=== PATIENT | female | born 1990 ===

== ENCOUNTER 2016-12-30 18:24 | Emergency (ER) | payer SELFPAY ==
[2016-12-30 18:50] VITALS: TEMP 98.3
[2016-12-30 19:38] LABS: URINE APPEARANCE CLEAR (CLEAR); URINE BILIRUBIN NEGATIVE (NEGATIVE); URINE BLOOD LARGE (NEGATIVE); URINE COLOR YELLOW (YELLOW); URINE GLUCOSE (UA) NEGATIVE (NEGATIVE); URINE KETONE NEGATIVE (NEGATIVE); URINE LEUKOCYTE ESTERASE NEGATIVE Leu/uL (NEGATIVE); URINE PROTEIN NEGATIVE mg/dL (<30 mg/dL); URINE UROBILINOGEN 0.2 E.U./dL (<1 E.U./dL)
[2016-12-30 20:02] LABS: URINE BACTERIA MANY (NEG)
--- NOTE | 2016-12-30 20:16 | ED PDOC ---
Arrival/HPI - General Chief Complaint: Female Genitourinary Time Seen by Provider: 12/30/16 18:58 Historian: Patient - History of Present Illness Narrative History of Present Illness (Text): 12/30/16 20:12 Patient complains of several day history of pressure-like suprapubic abdominal pain associated with bilateral flank pain, hematuria and dysuria. Otherwise: (- ) vomiting, (-) diarrhea, (-) fever, (-) melena, (-) hematochezia, (-) vaginal bleeding, (-) vaginal discharge. Has no history of prior abdominal surgery. Past Medical History - Provider Review Nursing Documentation Reviewed: Yes - Infectious Disease Hx of Infectious Diseases: None - Pulmonary Hx Asthma: Yes - Genitourinary/Gynecological Hx Urinary Tract Infection: Yes - Psychiatric Hx Substance Use: No - Anesthesia Hx Anesthesia: No Hx Anesthesia Reactions: No Hx Malignant Hyperthermia: No Family/Social History - Physician Review Nursing Documentation Reviewed: Yes Family/Social History: No Known Family HX Smoking Status: Never Smoked Hx Alcohol Use: No Hx Substance Use: No Allergies/Home Meds Allergies/Adverse Reactions: Allergies No Known Allergies Allergy (Verified 12/30/16 18:50) Review of Systems - Review of Systems Constitutional: Normal. absent: Fatigue, Weight Change, Fevers Respiratory: Normal. absent: SOB, Cough, Sputum Cardiovascular: Normal. absent: Chest Pain, Palpitations, Edema Gastrointestinal: Normal, Abdominal Pain. absent: Stool Changes, Vomiting, Appetite Changes Genitourinary Female: Normal, Dysuria. absent: Frequency, Hematuria Musculoskeletal: Normal. absent: Arthralgias, Back Pain, Neck Pain Skin: Normal. absent: Rash, Pruritis, Skin Lesions Physical Exam - Physical Exam Narrative Physical Exam (Text): 12/30/16 20:14 GENERAL APPEARANCE: Patient is awake, alert, oriented x 3, in no acute distress. SKIN: Warm, dry; (-) cyanosis. EYES: (-) conjunctival pallor, (-) scleral icterus. ENMT: Mucous membranes moist. NECK: (-) tenderness, (-) stiffness, (-) lymphadenopathy. CHEST AND RESPIRATORY: (-) rales, (-) rhonchi, (-) wheezes; breath sounds equal bilaterally. HEART AND CARDIOVASCULAR: (-) irregularity; (-) murmur, (-) gallop. ABDOMEN AND GI: (-) distention. Bowel sounds active; (+) mild suprapubic tenderness, (-) flank tenderness, (-) guarding, (-) rebound, (-) palpable masses , (-) CVA tenderness. EXTREMITIES: (-) deformity, (-) edema, (+) distal pulses. NEURO AND PSYCH: Mental status as above; (-) focal findings. Vital Signs Temp Pulse Resp BP Pulse Ox 12/30/16 18:46 98.3 F 78 20 112/75 98 Medical Decision Making ED Course and Treatment: 12/30/16 20:15 26 yo F planes of suprapubic pain, flank pain, hematuria and dysuria. UA and urine culture sent. Urine hCG negative, UA shows evidence of infection, urine culture pending at this time. Patient medicated with Macrobid and Pyridium by mouth. Based on history, exam and diagnostic results plan will be for outpatient follow -up. Prescription provided. Patient states she fully agrees with and understands discharge instructions. States that she agrees with the plan and disposition. Verbalized and repeated discharge instructions and plan. I have given the patient opportunity to ask any additional questions. Follow up with primary care physician or the clinic in 1-2 days without fail. Advised to take medication as prescribed. Return to the emergency room at any time for any new or worsening symptoms. - Lab Interpretations Lab Results: Lab Results 12/30/16 19:07: Urine Color Yellow, Urine Appearance Clear, Urine pH 7.0, Ur Specific [place] 1.020, Urine Protein Negative, Urine Glucose (UA) Negative, Urine Ketones Negative, Urine Blood Large H, Urine Nitrate Positive H, Urine Bilirubin Negative, Urine Urobilinogen 0.2, Ur Leukocyte Esterase Negative, Urine RBC 1 - 3, Urine WBC 10 - 15, Ur Epithelial Cells 10 - 12, Urine Bacteria Many - Medication Orders Current Medication Orders: Nitrofurantoin Macrocrystals (Macrobid) 100 mg PO ONCE ONE Stop: 12/30/16 20:13 Phenazopyridine HCl (Pyridium) 200 mg PO ONCE ONE Stop: 12/30/16 20:13 - PA / CYBER SECURITY ARCHITECT / Resident Statement / has reviewed & agrees with the documentation as recorded. Disposition/Present on Arrival - Present on Arrival Any Indicators Present on Arrival: No History of DVT/PE: No History of Uncontrolled Diabetes: No Urinary Catheter: No History of Decub. Ulcer: No History Surgical Site Infection Following: None - Disposition Have Diagnosis and Disposition been Completed?: Yes Diagnosis: UTI (urinary tract infection) Disposition: HOME/ ROUTINE Disposition Time: 20:16 Patient Plan: Discharge Patient Problems: Current Active Problems Problem Status Onset UTI (urinary tract infection) Acute Condition: GOOD Discharge Instructions (ExitCare): Urinary Tract Infection in Children (ED) Print Language: DANISH Additional Instructions: Thank you for letting us take care of you today. You were treated for UTI. The emergency medical care you received today was directed at your acute symptoms. If you were prescribed any medication, please fill it and take as directed. It may take several days for your symptoms to resolve. Return to the Emergency Department if your symptoms worsen, do not improve, or if you have any other problems. Please contact your doctor in 2 days for re-evaluation and follow up. Bring any paperwork you were given at discharge with you along with any medications you are taking to your follow up visit. Our treatment cannot replace ongoing medical care by a primary care provider (PCP) outside of the emergency department. Thank you for allowing the [facility] team to be part of your care today. Prescriptions: Nitrofurantoin Macrocrystals [Macrobid] 100 mg PO BID #20 cap Phenazopyridine [Pyridium] 200 mg PO BID #6 tab Referrals: [facility] at [facility] [place] [Outside] - Follow up with primary Forms: SCHOOL NOTE, WORK NOTE
[2016-12-30 20:43] VITALS: BP 115/80; PULSE 70; RESP 16; O2SAT 99
== END 2016-12-30 20:42 | disposition home or self-care (01) ==
LOC: ED 18:24 → MERGE 18:24 → ED 20:42
DX: N39.0 Urinary tract infection, site not specified (principal)

== ENCOUNTER 2017-01-20 16:06 | Emergency (ER) | payer BC, MEDICAID, OTHER ==
[2017-01-20 16:23] VITALS: BMI 20.9
[2017-01-20 16:25] VITALS: BP 102/57; PULSE 83; RESP 16; TEMP 97.7
--- NOTE | 2017-01-20 16:54 | ED PDOC ---
Arrival/HPI - General Chief Complaint: Lower Extremity Problem/Injury Time Seen by Provider: 01/20/17 16:27 Historian: Patient - History of Present Illness Narrative History of Present Illness (Text): 01/20/17 16:51 26yr old female presents today with 3 day history of left foot, ankle and left calf pain. pt denies numbness, weakness, tingling. pt denies fever/chills. denies trauma or injury. Pt states pain started in left foot and spread into ankle and calf. pt states she took motrin for pain without relief. no other complaints. Time/Duration: Other (3 days) Symptom Onset: Gradual Symptom Course: Worsening Quality: Aching, Throbbing Severity Level: 8 Past Medical History - Provider Review Nursing Documentation Reviewed: Yes - Travel History Have you recently traveled outside [place] w/in the past 3 mons?: No - Infectious Disease Hx of Infectious Diseases: None - Tetanus Immunization Tetanus Immunization: Unknown - Cardiac Hx Hypertension: No - Pulmonary Hx Asthma: Yes - Neurological Hx Seizures: No - HEENT Hx HEENT Disorder: No - Renal Hx Renal Disorder: No - Endocrine/Metabolic Hx Endocrine Disorders: No - Hematological/Oncological Hx Cancer: No - Integumentary Hx Dermatological Disorder: No - Musculoskeletal/Rheumatological Hx Musculoskeletal Disorders: No - Gastrointestinal Hx Gastrointestinal Disorders: No - Genitourinary/Gynecological Hx Urinary Tract Infection: Yes - Psychiatric Hx Depression: Yes Hx Substance Use: No - Anesthesia Hx Anesthesia: No Hx Anesthesia Reactions: No Hx Malignant Hyperthermia: No - Suicidal Assessment Feels Threatened In Home Enviroment: No Family/Social History - Physician Review Nursing Documentation Reviewed: Yes Family/Social History: Unknown Family HX Smoking Status: Never Smoked Hx Alcohol Use: No Hx Substance Use: No Allergies/Home Meds Allergies/Adverse Reactions: Allergies morphine Allergy (Verified 01/20/17 16:23) RASH Review of Systems - Review of Systems Constitutional: absent: Fatigue, Fevers Respiratory: absent: SOB, Cough Cardiovascular: absent: Chest Pain, Palpitations Gastrointestinal: absent: Abdominal Pain, Nausea, Vomiting Musculoskeletal: Arthralgias. absent: Back Pain, Neck Pain Skin: absent: Rash, Pruritis Neurological: absent: Headache, Dizziness Physical Exam Vital Signs Reviewed: Yes Vital Signs Temp Pulse Resp BP Pulse Ox 01/20/17 16:24 97.7 F 83 16 102/57 L 97 Temperature: Afebrile Blood Pressure: Normal Pulse: Regular Respiratory Rate: Normal Appearance: Positive for: Well-Appearing, Non-Toxic, Comfortable Pain Distress: None Mental Status: Positive for: Alert and Oriented X 3 - Systems Exam Head: Present: Atraumatic Mouth: Present: Moist Mucous Membranes Neck: Present: Normal Range of Motion Respiratory/Chest: Present: Clear to Auscultation, Good Air Exchange. No: Respiratory Distress, Accessory Muscle Use Cardiovascular: Present: Regular Rate and Rhythm, Normal S1, S2. No: Murmurs Lower Extremity: Present: CALF TENDERNESS, NORMAL PULSES, Normal ROM, Tenderness ( left foot; + ttp over great toe at the MTP and distal great toe; minimal edema, no erythema; no ecchymosis; + ankle tenderness without swelling. + calf tenderness; no erythema, no swelling. sensation and distal pulses intact. cap refill <2. ), Swelling, Neurovascularly Intact, Capillary Refill < 2 s. No: Erythema, Deformity Neurological: Present: GCS=15, Speech Normal Skin: Present: Warm, Dry, Normal Color. No: Rashes Psychiatric: Present: Alert, Oriented x 3 Medical Decision Making ED Course and Treatment: 01/20/17 16:57 Patient nontoxic well-appearing in no distress with stable vital signs X-rays of the left foot: no fracture xray of the left ankle; no fracture duplex of the left leg; no dvt verbal report from [employer] tech toradol IM Patient placed in NONA WRAP; crutches given for ambulation. I discussed all results in depth with the patient advised to followup with the orthopedist within the next 2 days. Return if symptoms worsen persist or new symptoms develop pt verbalizes understand of d/c instructions and need for immediate f/u and return if symptoms worsen. Impression: Foot pain, leg pain Motrin every 6 hours as needed for pain Rest, ice, compression, elevation Use crutches for ambulation Followup with the orthopedist within the next 2 days Followup with primary care physician within the next 2 days Return if symptoms worsen persist or if new symptoms develop - RAD Interpretation Radiology Orders: 01/20/17 16:40 ANKLE LEFT 3 VIEWS ROUTINE [RAD] Stat FOOT LEFT 3 VIEWS ROUTINE [RAD] Stat DUPLEX LOWER EXTRM VEIN LEFT [US] Stat - Medication Orders Current Medication Orders: Discontinued Medications Ketorolac Tromethamine (Toradol) 60 mg IM STAT STA Stop: 01/20/17 16:42 Last Admin: 01/20/17 16:58 Dose: 60 mg Disposition/Present on Arrival - Present on Arrival Any Indicators Present on Arrival: No History of DVT/PE: No History of Uncontrolled Diabetes: No Urinary Catheter: No History of Decub. Ulcer: No History Surgical Site Infection Following: None - Disposition Have Diagnosis and Disposition been Completed?: Yes Diagnosis: Foot pain, Leg pain Disposition: HOME/ ROUTINE Disposition Time: 18:16 Patient Plan: Discharge Patient Problems: Current Active Problems Problem Status Onset Foot pain Acute Leg pain Acute Condition: GOOD Discharge Instructions (ExitCare): Arthralgia (ED), Leg Pain (ED) Additional Instructions: Motrin every 6 hours as needed for pain Rest, ice, compression, elevation Use crutches for ambulation Followup with the orthopedist within the next 2 days Followup with primary care physician within the next 2 days Return if symptoms worsen persist or if new symptoms develop Prescriptions: Ibuprofen [Motrin] 600 mg PO Q6H PRN #20 tab PRN Reason: pain/fever reduction Referrals: Wes Ramirez [Primary Care Provider] - Follow up with primary Jones Chau MD [Staff Provider] - Follow up with primary [facility] [place] [Outside] - Follow up with primary [facility] [place] [Outside] - Follow up with primary Forms: WORK NOTE
[2017-01-20 18:48] VITALS: O2SAT 98
--- NOTE | 2017-01-21 08:24 | RAD ---
PROCEDURE: Left Foot Radiographs. HISTORY: foot pain/ great toe, MTP COMPARISON: None. FINDINGS: BONES: Normal. No fracture. JOINTS: Normal. SOFT TISSUES: Normal. OTHER FINDINGS: None. IMPRESSION: Normal left foot radiographs.
--- NOTE | 2017-01-21 08:38 | RAD ---
PROCEDURE: Left Ankle Radiographs. HISTORY: ankle pain COMPARISON: None FINDINGS: BONES: Normal. No fracture. JOINTS: Normal. No osteoarthritis. Ankle mortise maintained. Talar dome intact SOFT TISSUES: Normal. OTHER FINDINGS: None. IMPRESSION: Normal left ankle radiographs.
--- NOTE | 2017-01-21 14:44 | US ---
PROCEDURE: Left lower extremity venous US HISTORY: Leg pain and swelling. Evaluate for DVT. PHYSICIAN(S): Kun Martinez MD. TECHNIQUE: Duplex sonography and color-flow Doppler with graded compression were used to evaluate the deep venous system of the left lower extremity. FINDINGS: The visualized deep venous system of the left lower extremity is sonographically normal and compressible. Normal wave forms and augmentation are seen. There is no sonographic evidence for deep venous thrombosis in the visualized segments of the left lower extremity. IMPRESSION: 1. No sonographic evidence for deep venous thrombosis in the visualized segments of the left lower extremity.
== END 2017-01-20 18:47 | disposition home or self-care (01) ==
LOC: ED 16:06
DX: M79.672 Pain in left foot (principal); M79.605 Pain in left leg
CPT/HCPCS: 73610; 73630; 93971; 96372; 99283; J1885